=== PATIENT | male | born 1980 | race Caucasian/White ===

== ENCOUNTER 2017-12-29 13:58 | Emergency (ER) | payer MEDICAID ==
--- NOTE | 2017-12-29 15:12 | EDPHY ---
H & P Time Seen by Provider: 12/29/17 14:53 HPI/ROS: Chief complaint. Seizure HPI. 37-year-old male here with coworkers after having a seizure at work today. He awoke feeling a little bit weird. He has a history of epilepsy. He usually has seizures about 1 time per year. Seizure was witnessed by coworkers and it was described as generalized tonic-clonic lasting about 2 min. He did fall forward onto his face and sustained a small nasal laceration. The patient was confused afterwards. He did not bite his tongue. He feels back to normal now. He says this is standard seizure. He is not ill. He did not sleep well last night as possible etiology. He has been taking his Lamictal twice daily without missing doses ROS 10 systems were reviewed and negative with the exception of the elements mentioned in the history of present illness Past Medical/Surgical History: Epilepsy Social History: Single, nonsmoker, no alcohol Smoking Status: Never smoked Physical Exam: General Appearance: Alert pleasant well-developed male stable vital signs mild distress Eyes: Pupils equal and round no pallor or injection. ENT, 0.5 cm superficial laceration to the bridge of his nose. No septal hematoma. No oral pharyngeal or dental trauma. No tongue bite. Respiratory: There are no retractions, lungs are clear to auscultation. Cardiovascular: Regular rate and rhythm. Gastrointestinal: Abdomen is soft and nontender, no masses, bowel sounds normal. Neurological: Awake and alert, sensory and motor exams grossly normal. Skin: Warm and dry, no rashes. Musculoskeletal: Neck is supple nontender. Extremities symmetrical, full range of motion. Psychiatric: Patient is oriented X 3, there is no agitation. Constitutional: Initial Vital Signs Temperature (C) 36.4 C 12/29/17 14:00 Heart Rate 91 12/29/17 14:00 Respiratory Rate 16 12/29/17 14:00 Blood Pressure 131/75 H 12/29/17 14:00 O2 Sat (%) 97 12/29/17 14:00 O2 Delivery Mode Room Air Allergies/Adverse Reactions: No Known Allergies Allergy (Verified 12/29/17 14:00) Home Medications: Medication Instructions Recorded LaMICtal 12/29/17 Medical Decision Making Procedures: I-STAT is performed and is normal. Glucose is 79 ED Course/Re-evaluation: Re-evaluation at 3:40 p.m.. Patient feels well. He is back to normal. He has no complaints. He feels this was 1 of his regular seizures and there is no alarming symptoms Differential Diagnosis: Seizure possibly due to sleep deprivation in a patient with history of seizure disorder. No worrisome or acute findings Departure - Departure Disposition: Home, Routine, Self-Care Clinical Impression: Seizure, Seizure disorder Condition: Good Instructions: Epilepsy (ED) Additional Instructions: Regular eating and drinking. Try to get regular sleep. Continue Lamictal twice daily as prescribed Return for another seizure. Follow-up with Dr. Hall for possible Lamictal dose adjustment Referrals: Mars Harp MD [Primary Care Provider] - 2-3 days, call for appt.
[2017-12-29 15:59] VITALS: BP 121/67
== END 2017-12-29 16:01 | disposition home or self-care (01) ==
DX: G40.909 Epilepsy, unspecified, not intractable, without status epilepticus (principal)
CPT/HCPCS: 82435-PO; 82565-PO; 82947-PO; 84132-PO; 84295-PO; 84520-PO; 85014-PO